=== PATIENT | male | born 1995 | race Caucasian/White ===

== ENCOUNTER → 2017-10-01 13:58 | Outpatient (CLI) | payer OTHER, SELFPAY ==
[2017-10-01 19:58] LABS: Chlamydia Trachomatis by PCR Negative (Negative); Neisserai gonorrhoeae by PCR Positive (Negative); Probe Check PASS
[2017-10-02 09:05] LABS: HIV - WCH Non-Reactive (Nonreactive)
[2017-10-04 02:41] LABS: Rapid Plasmin Reagin (RPR) NONREACTIVE (NONREACTIVE)
== END ==
PROVIDERS: Visit Provider Family Medicine
DX: Z20.9 Contact with and (suspected) exposure to unspecified communicable disease (principal)
CPT/HCPCS: 36415; 86592; 86703; 87491; 87591

== ENCOUNTER → 2017-11-07 15:48 | Outpatient (CLI) | payer OTHER, SELFPAY ==
[2017-11-07 18:06] LABS: Creatinine, Serum 0.99 mg/dL (0.70-1.30); EST Glomerular Filtration Rate 101 mL/min (>60); Est Glom Filt Rate - Afr Amer 122 mL/min (>60)
[2017-11-09 08:41] LABS: HEPATITIS B SURFACE AG Negative (Negative)
== END ==
PROVIDERS: Family Provider Family Medicine; PCP Family Medicine; Visit Provider Family Medicine
DX: Z51.81 Encounter for therapeutic drug level monitoring (principal)
CPT/HCPCS: 36415; 82565; 87340

== ENCOUNTER 2018-06-15 21:33 | Emergency (ER) | payer OTHER, SELFPAY ==
[2018-06-15 21:34] VITALS: BP 129/72; PULSE 83; RESP 15; TEMP 36.4; BMI 25.9
--- NOTE | 2018-06-15 22:36 | CT_ITS ---
HISTORY: GPGroin PainCT Abd/Pelvis wo TECHNIQUE: Helically acquired images were obtained of the abdomen and pelvis without oral or IV contrast as per renal stone protocol. A radiation dose optimization technique was used for this scan. IV Contrast dosage and agent: None. Oral contrast: None. COMPARISON: None FINDINGS: LOWER CHEST: Lung bases are clear. No cardiomegaly or pericardial effusion observed. LIVER: Homogeneous. No focal mass. GALLBLADDER AND BILIARY TREE: No calcified gallstones. There is no gallbladder distension or wall edema. No intra- or extrahepatic biliary ductal dilation. KIDNEYS AND URETERS: Normal renal size and position. There is no hydronephrosis or nephrolithiasis. ADRENAL GLANDS: Non-enlarged. SPLEEN: Normal size without focal cystic or solid mass. PANCREAS: No focal cystic or solid mass. BOWEL: Normal appendix. No stomach or bowel distension. No focal inflammatory change observed. LYMPH NODES: Mild left inguinal lymphadenopathy. No other enlarged mesenteric or retroperitoneal lymph nodes. PERITONEUM: No ascites or free air. No other fluid collection. VESSELS: Aorta is non-dilated. URINARY BLADDER: Unremarkable. REPRODUCTIVE ORGANS: No pelvic masses. ABDOMINAL WALL: No discrete abdominal or pelvic wall hernia observed. BONES: No lytic or blastic abnormality observed. CT/Abdomen/Pelvis without Cont IMPRESSION: Mild left inguinal lymphadenopathy. No evidence of lymph node necrosis. Please correlate for tenderness and for symptoms of overlying superficial infection. Otherwise negative study. Individualized dose optimization techniques were used for this CT. at 0034 Reported and signed by: Regan Glass MD Electronically Signed: Regan Glass, at 0:33 EDT Tel , Service support ,
--- NOTE | 2018-06-15 22:36 | ED.VIS.GEN ---
History of Present Illness Chief Complaint: Abd Pain Narrative: She stated he noticed that he has a left inguinal mass. It does not really hurt unless he presses on it deep. He is having no pain currently. It came on today. He was seen 3 years ago and had similar type pain. They thought he might have an early inguinal hernia. He never followed up. He never really had any problems until today. He denies any other symptoms. Current severity is mild. There is no redness. Denies any dysuria urgency or frequency. Past Medical History - Allergies and Home Meds Allergies/Adverse Reactions: Allergies aspirin [ASA] Allergy (Verified 06/15/18 21:37) Hives Primary Care Physician: Amado Lacy DO [Primary Care Provider] - Prior records reviewed: Yes Past Medical History: None Surgical History: noncontributory Lives: Alone Smoking Status: Never smoker Alcohol: None Drugs: None Review of Systems General: Denies: Chills, Fever, Sweats Eyes: Denies: Visual changes - bilaterally, Diplopia ENT: Denies: Rhinorrhea, Sore throat Cardiovascular: Denies: Chest pain, Palpitations Respiratory: Denies: Dyspnea, Cough, Dyspnea on exertion Gastrointestinal: Reports: - - Positive left groin mass. Denies: Abdominal pain, Nausea, Vomiting, Diarrhea, Melena, Hematochezia Genitourinary: Denies: Dysuria, Hematuria, Frequency Musculoskeletal: Denies: Back pain, Extremity Pain Skin: Denies: Rash, Wounds Neurological: Denies: Headache, Weakness, Numbness Physical Exam Vital Signs/Narrative: Vital Signs Temp Pulse Resp BP 06/15/18 21:34 97.6 F L 83 15 129/72 H General: Well nourished, Well developed, No Acute Distress Head: Normocephalic, Atraumatic Eyes: Perrl, EOMI ENT: Moist mucous membranes, No rhinorrhea Neck: Supple, Nontender Cardiovascular: Regular rate, Regular rhythm, No murmurs Respiratory: No distress, CTA bilaterally, Chest nontender Abdomen: Soft, Nondistended, Normal bowel sounds, Mass - Patient has a left small 1 cm x 1 cm circular lump in his left groin region. Just above the inguinal canal. It is only tender with deep palpation. There is no redness. There is no discoloration. There is nothing felt inside his inguinal canal.. Negative for: Nontender Back: Nontender, Normal Inspection Extremities: Nontender, No edema Skin: Normal color, No rash Neurological: Alert, Oriented x3, Cranial nerves II-XII grossly intact, Normal Strength, Normal Sensation Psychological: Normal affect, Normal Mood Diagnostic/Tx/Re-eval Impressions Abdomen/Pelvis CT 06/15/18 22:36 IMPRESSION: Mild left inguinal lymphadenopathy. No evidence of lymph node necrosis. Please correlate for tenderness and for symptoms of overlying superficial infection. Otherwise negative study. Individualized dose optimization techniques were used for this CT. at 0034 Reported and signed by: Regan Glass MD Electronically Signed: Regan Glass, at 0:33 EDT Tel , Service support , 06/15/18 22:36 Abdomen/Pelvis without Cont [CT] Stat - Medical Decision Making Patient did not waiting for any discomfort. CT obtained as I was originally unable to reduce it. CT shows that it has enlarged lymph node. Patient denies any STD symptoms. He has not had any unprotected sex in the last several months. Low suspicion for that. He will monitor this. He has some just slight tenderness with deep palpation. Understands he needs to have this checked if it persists. I do not think he needs antibiotics. This is one large lymph node at this time. ED Disposition - Plan for ED Patient: Disposition: [facility] Diagnosis: Lymphadenopathy, inguinal Instructions: ED Blank Diagnosis Form Referrals: Amado Lacy DO [Primary Care Provider] - Additional Instructions: Have a swollen lymph node. Continue to monitor this and use ibuprofen. Follow-up as an outpatient in 1 week if it is still persisting
--- NOTE | 2018-06-15 22:39 | ED.DCSUM_ITS ---
History of Present Illness Chief Complaint: Abd Pain Narrative: She stated he noticed that he has a left inguinal mass. It does not really hurt unless he presses on it deep. He is having no pain currently. It came on today. He was seen 3 years ago and had similar type pain. They thought he might have an early inguinal hernia. He never followed up. He never really had any problems until today. He denies any other symptoms. Current severity is mild. There is no redness. Denies any dysuria urgency or frequency. Past Medical History - Allergies and Home Meds Allergies/Adverse Reactions: Allergies aspirin [ASA] Allergy (Verified 06/15/18 21:37) Hives Primary Care Physician: Amado Lacy DO [Primary Care Provider] - Prior records reviewed: Yes Past Medical History: None Surgical History: noncontributory Lives: Alone Smoking Status: Never smoker Alcohol: None Drugs: None Review of Systems General: Denies: Chills, Fever, Sweats Eyes: Denies: Visual changes - bilaterally, Diplopia ENT: Denies: Rhinorrhea, Sore throat Cardiovascular: Denies: Chest pain, Palpitations Respiratory: Denies: Dyspnea, Cough, Dyspnea on exertion Gastrointestinal: Reports: - - Positive left groin mass. Denies: Abdominal pain, Nausea, Vomiting, Diarrhea, Melena, Hematochezia Genitourinary: Denies: Dysuria, Hematuria, Frequency Musculoskeletal: Denies: Back pain, Extremity Pain Skin: Denies: Rash, Wounds Neurological: Denies: Headache, Weakness, Numbness Physical Exam Vital Signs/Narrative: Vital Signs Temp Pulse Resp BP 06/15/18 21:34 97.6 F L 83 15 129/72 H General: Well nourished, Well developed, No Acute Distress Head: Normocephalic, Atraumatic Eyes: Perrl, EOMI ENT: Moist mucous membranes, No rhinorrhea Neck: Supple, Nontender Cardiovascular: Regular rate, Regular rhythm, No murmurs Respiratory: No distress, CTA bilaterally, Chest nontender Abdomen: Soft, Nondistended, Normal bowel sounds, Mass - Patient has a left small 1 cm x 1 cm circular lump in his left groin region. Just above the inguinal canal. It is only tender with deep palpation. There is no redness. There is no discoloration. There is nothing felt inside his inguinal canal.. Negative for: Nontender Back: Nontender, Normal Inspection Extremities: Nontender, No edema Skin: Normal color, No rash Neurological: Alert, Oriented x3, Cranial nerves II-XII grossly intact, Normal Strength, Normal Sensation Psychological: Normal affect, Normal Mood Diagnostic/Tx/Re-eval Impressions Abdomen/Pelvis CT 06/15/18 22:36 IMPRESSION: Mild left inguinal lymphadenopathy. No evidence of lymph node necrosis. Please correlate for tenderness and for symptoms of overlying superficial infection. Otherwise negative study. Individualized dose optimization techniques were used for this CT. at 0034 Reported and signed by: Regan Glass MD Electronically Signed: Regan Glass, at 0:33 EDT Tel , Service support , 06/15/18 22:36 Abdomen/Pelvis without Cont [CT] Stat - Medical Decision Making Patient did not waiting for any discomfort. CT obtained as I was originally unable to reduce it. CT shows that it has enlarged lymph node. Patient denies any STD symptoms. He has not had any unprotected sex in the last several months. Low suspicion for that. He will monitor this. He has some just slight tenderness with deep palpation. Understands he needs to have this checked if it persists. I do not think he needs antibiotics. This is one large lymph node at this time. ED Disposition - Plan for ED Patient: Disposition: [facility] Diagnosis: Lymphadenopathy, inguinal Instructions: ED Blank Diagnosis Form Referrals: Amado Lacy DO [Primary Care Provider] - Additional Instructions: Have a swollen lymph node. Continue to monitor this and use ibuprofen. Follow- up as an outpatient in 1 week if it is still persisting
[2018-06-16 00:05] VITALS: BP 123/86; PULSE 88; RESP 16; O2SAT 100
[2018-06-16 01:00] VITALS: BP 115/74; PULSE 88; RESP 16; O2SAT 100
== END 2018-06-16 01:03 | disposition home or self-care (01) ==
PROVIDERS: Emergency Provider Emergency Medicine; Family Provider Family Medicine; PCP Family Medicine
DX: R59.1 Generalized enlarged lymph nodes (principal)
CPT/HCPCS: 74176; 99282

== ENCOUNTER → 2018-06-17 15:40 | Outpatient (CLI) | payer OTHER, SELFPAY ==
[2018-06-15 21:34] VITALS: BMI 25.9
[2018-06-17 15:43] LABS: Bacteria 0 SEEN /hpf (None Seen); Mucous, Urine 0 SEEN /hpf (<or=2+); Red Blood Cells-Urine 0 SEEN /hpf (0-5); Squamous Epithelial Cells - UA 0 SEEN /hpf (0-5); White Blood Cells 0 SEEN /hpf (0-5)
[2018-06-17 17:44] LABS: Color, Urine Yellow (Yellow); Glucose, Dipstick Normal (Normal); Ketone-Dipstick Negative (Negative); Leukocyte Esterase-Dipstick Negative /ul (Negative); Nitrite-Dipstick Negative (Negative); Occult Blood-Urine 10 /ul (Negative); Protein-Dipstick Negative (Negative); Specific Gravity, Urine 1.015 (1.002-1.030); Urine Bilirubin Dipstick Negative (Negative); Urine Clarity Sl. Cloudy (Clear); Urine Urobilinogen Normal (Normal)
[2018-06-17 17:50] LABS: Amorphous Sediment 1+
[2018-06-17 18:06] LABS: Absolute Lymphocyte Count 1.65 X10^3/ul (0.83-4.51); Basophil# 0.03 X10^3/uL; Basophil% 0.5 % (0-1); Eosinophil# 0.37 X10^3/uL; Eosinophils% 6.5 % (0-5); Hematocrit 44.1 % (40-54); Lymphocyte # 1.65 X10^3/ul (4.0); Mean Corp Hgb Conc 31.7 g/gl (32-36); Mean Corpuscular Hgb 28.5 pg (27.0-32.0); Mean Corpuscular Volume 89.8 fL (80-94); Mean Platelet Vol. 9.4 fl (6.2-12.0); Monocyte# 0.62 X10^3/uL; Monocyte% 10.9 % (0-10); Neutrophil # 3.01 X10^3/uL (2.7-7.7); Neutrophil % 53.1 % (47-70); Platelet Count 233 K/mm3 (150-450); RBC Distribution Width CV 12.9 % (11.6-14.6); RBC Distribution Width SD 41.9 fl (35.1-43.9); Red Blood Count 4.91 M/mm3 (4.6-6.2); White Blood Count 5.7 K/mm3 (4.4-11.0)
[2018-06-17 18:19] LABS: CRP < 2.90 mg/L (0.0-3.0); POSITIVE COUNT NO; POSITIVE DIFFERENTIAL NO; POSITIVE MORPHOLOGY NO
[2018-06-17 21:18] LABS: Chlamydia Trachomatis by PCR Negative (Negative); Neisserai gonorrhoeae by PCR Negative (Negative); Probe Check PASS; Sample Adequacy Control PASS; Specimen Processing Control PASS
== END ==
PROVIDERS: Family Provider Family Medicine; PCP Family Medicine; Visit Provider Family Medicine
DX: R59.0 Localized enlarged lymph nodes (principal)
CPT/HCPCS: 36415; 81001; 85025; 86140; 87491; 87591

== ENCOUNTER 2019-03-29 16:20 | Emergency (ER) | payer OTHER, SELFPAY ==
[2019-03-29 16:21] VITALS: BP 147/87; PULSE 75; RESP 16; TEMP 36.8; O2SAT 100; BMI 24.3
--- NOTE | 2019-03-29 17:13 | ED.VISSUMM ---
- ER Visit Summary Date of Service: 03/29/19 Chief Complaint: Psychiatric episode today History of Present Illness: The patient is a 23 M reported history of bipolar disorder diagnosed by his primary care physician but is never seen a psychiatrist nor is ever needed to be admitted before. He also has ADHD. Recently he and his significant other broke up after a long-term relationship. Today he had what he terms is a psychiatric event. Parents state at times he was very upset and tearful and at times he was joyous and laughing. And that all seem to have resolved. When this occurred he did break his cell phone because he was so upset. They state he never made any threats to hurt himself or anyone else. He strongly denies ever being suicidal or homicidal. Has never had those inclinations in the past. And does not cut himself. He does admit to smoking marijuana from time to time but said that is resolved lately also. He is really just looking to get psychiatric help but does not feel that he needs to be admitted. Physical Examination: Young male no acute distress vital signs stable afebrile. Parents are present in room. H EENT exam unremarkable. No smell of alcohol. No signs of toxidrome. Neck nontender. No signs of trauma. Lungs clear to auscultation bilaterally. Heart regular rhythm no murmur rate about 75. Abdomen soft nontender. Normal bowel sounds no peritoneal signs.. Extremities moves all 4. No signs of trauma. No track jones. Neurologically is awake and alert with no focal motor deficits. Psychiatrically he is awake alert he is talkative is acting normally. He is not threatening harm himself or anyone else. He is making eye contact and speaking calmly and in complete sentences. Test Results: None Emergency Department Course and Treatment: Discussed with the patient, both his parents present in the room and the counseling center personnel and they will set up an appointment to be seen with the counseling center tomorrow. I spoke with Raúl from crisis. Treatment Plan: Follow-up in counseling center tomorrow. Return if worse. Disposition: Discharge Impression: Acute psychiatric outburst resolved This note was generated with [employer] software. It may contain incorrect words, spelling, and punctuation that were not noted in review of the chart prior to signing ED Disposition - Plan for ED Patient: Referrals: Amado Lacy DO [Primary Care Provider] -
--- NOTE | 2019-03-29 17:23 | ED.DEP ---
ED Disposition - Plan for ED Patient: Disposition: Home or Assisted Living Instructions: Bipolar Disorder Referrals: Counseling,Center [GROUP OF PHYSICIANS] - 1 Day Additional Instructions: Follow-up with the counseling center tomorrow with the appointment that you have them schedule.
--- NOTE | 2019-03-29 17:37 | ED.RN ---
DISCHARGE INSTRUCTIONS GIVEN TO AND REVIEWED WITH PATIENT AND PARENTS, ALL DENY QUESTIONS OR CONCERNS AND VOICES UNDERSTANDING OF DISCHARGE INSTRUCTIONS. PT AMBULATES OUT OF ROOM WITHOUT ISSUE.
== END 2019-03-29 17:38 | disposition home or self-care (01) ==
PROVIDERS: Emergency Provider Emergency Medicine; Family Provider Family Medicine; PCP Family Medicine
DX: F31.9 Bipolar disorder, unspecified (principal); F90.9 Attention-deficit hyperactivity disorder, unspecified type; F12.90 Cannabis use, unspecified, uncomplicated
CPT/HCPCS: 99282

== ENCOUNTER → 2019-11-26 15:07 | Outpatient (CLI) | payer OTHER, SELFPAY ==
[2019-11-26 18:36] LABS: HIV - WCH Non-Reactive (Nonreactive)
[2019-11-30 03:07] LABS: Chlamydia By Nucleic Acid AMP Negative (Negative)
[2019-11-30 07:54] LABS: Gonococcus By Nucleic Acid AMP Negative (Negative)
[2019-12-03 01:33] LABS: Rapid Plasmin Reagin (RPR) NONREACTIVE (NONREACTIVE)
== END ==
PROVIDERS: PCP Family Medicine; Visit Provider Family Medicine
DX: Z20.9 Contact with and (suspected) exposure to unspecified communicable disease (principal)
CPT/HCPCS: 36415; 86592; 86703; 87491; 87591

== ENCOUNTER → 2020-05-06 16:23 | Outpatient (CLI) | payer OTHER, SELFPAY ==
[2020-05-06 18:59] LABS: HIV - WCH Non-Reactive (Nonreactive)
[2020-05-09 12:24] LABS: HSV 1 IgG 3.16 index (0.00-0.90); HSV 2 IgG < 0.91 index (0.00-0.90)
[2020-05-12 01:10] LABS: Rapid Plasmin Reagin (RPR) NONREACTIVE (NONREACTIVE)
== END ==
PROVIDERS: PCP Family Medicine; Visit Provider Family Medicine
DX: N48.9 Disorder of penis, unspecified (principal); Z11.3 Encounter for screening for infections with a predominantly sexual mode of transmission
CPT/HCPCS: 36415; 86592; 86695; 86696; 86703

== ENCOUNTER → 2023-12-02 | Outpatient (CLI) | payer SELFPAY ==
[2023-12-02 18:28] LABS: Hemoglobin A1c 5.6 % (3.8-5.6)
[2023-12-02 20:41] LABS: Cholesterol 235 mg/dL (200); High Density Lipoprotein 45 mg/dL; Triglycerides 105 mg/dL; Very Low Density Lipoprotein 21 mg/dL (5-40)
== END | disposition home or self-care (01) ==
PROVIDERS: PCP Family Medicine; Referring Provider Family Medicine; Visit Provider Family Medicine
DX: Z00.00 Encounter for general adult medical examination without abnormal findings (principal)
CPT/HCPCS: 36415; 80061; 83036